=== PATIENT | male | born 1960 | race Two or more races ===

== ENCOUNTER 2019-05-12 09:17 | Emergency (ER) | payer SELFPAY ==
--- NOTE | 2019-05-12 09:23 | ER Document Report ---
ED Medical Screen (RME) - General Stated Complaint: POSSIBLE STROKE Time Seen by Provider: 05/12/19 09:18 - HPI Notes: 05/12/19 09:21 I was called to the [facility] desk to do a very brief focused exam for possible stroke. Coworker picked patient up and noticed he had trouble speaking and a facial droop. He was able to ambulate at that time. When he pulled to the emergency department patient can no longer walk and was not using the right side of his body. Unknown if any medical conditions or drug use. Patient's friend was acting as a flap maker at this time patient was not following directions well. Stroke protocol initiated. Orders placed. I have treated and performed a rapid initial assessment of this patient. A comprehensive ED assessment and evaluation of the patient, analysis of test results and completion of medical decision making process will be conducted by additional ED providers.
[2019-05-12] MEDS ORDERED: NICARDIPINE HCL RTU, ISO-OS 20 MG/200 ML RTUINJ IV ONE (10:04)
--- NOTE | 2019-05-12 10:13 | RADIOLOGY REPORT (SQ) ---
EXAM DESCRIPTION: CT HEAD WITHOUT COMPLETED DATE/TIME: 05/12/2019 9:32 am REASON FOR STUDY: possible stroke, rt side deficits COMPARISON: None. TECHNIQUE: Axial images acquired through the brain without intravenous contrast. Images reviewed wi th bone, brain and subdural windows. Additional sagittal and coronal reconstructions were generated. Images stored on PACS. All CT scanners at this facility use dose modulation, iterative reconstruction, and/or weight based d osing when appropriate to reduce radiation dose to as low as reasonably achievable (ALARA). [facility]: Dose Right [facility]: CareDose [facility]: Dose Right [facility]: Teradose 4D [facility]: [employer] RADIATION DOSE: CT Rad equipment meets quality standard of care and radiation dose reduction techniq ues were employed. CTDIvol: 53.2 mGy. DLP: 1017 mGy-cm. mGy. LIMITATIONS: None. FINDINGS: VENTRICLES: Normal size and contour. CEREBRUM: No masses. No hemorrhage. No midline shift. No evidence for acute infarction. Normal gra y/white matter differentiation. There is a subtle area of decreased attenuation in the posterior rig ht parietal lobe (axial series 2, images 24 and 25). CEREBELLUM: No masses. No hemorrhage. No alteration of density. No evidence for acute infarction. EXTRAAXIAL SPACES: No fluid collections. No masses. ORBITS AND GLOBE: No intra- or extraconal masses. Normal contour of globe without masses. CALVARIUM: No fracture. PARANASAL SINUSES: No fluid or mucosal thickening. SOFT TISSUES: No mass or hematoma. OTHER: No other significant finding. IMPRESSION: SUBTLE AREA OF DECREASED ATTENUATION IN THE POSTERIOR RIGHT PARIETAL LOBE, POSSIBLY AN A EVIE OF EARLY INFARCT. NO EVIDENCE OF HEMORRHAGE. EVIDENCE OF ACUTE STROKE: POSSIBLE. RIGHT MCA. COMMENT: Pertinent positive or negative findings of the imaging study reported as a CRITICAL EXAM t o ER PHYSICIAN at10:07 on 05/12/2019. Category of Critical Exam: STROKE ALERT. Quality ID # [id number]: Final reports with documentation of one or more dose reduction techniques (e.g., Au tomated exposure control, adjustment of the mA and/or kV according to patient size, use of iterative reconstruction technique) TECHNICAL DOCUMENTATION: JOB ID: [id number] [employer]- All Rights Reserved Reading location - IP/workstation name: [email or web address]
[2019-05-12 10:18] LABS: ABSOLUTE EOSINOPHILS # (AUTO) 0.1 10^3/uL (0.0-0.6); ABSOLUTE LYMPHOCYTES (AUTO) 1.7 10^3/uL (0.5-4.7); ABSOLUTE MONOCYTES (AUTO) 0.6 10^3/uL (0.1-1.4); BASOPHILS % (AUTO) 0.4 % (0-2); EOSINOPHILS % (AUTO) 1.5 % (0-6); HEMATOCRIT 32.3 % (37.9-51.0); HEMOGLOBIN 11.2 g/dL (13.5-17.0); LYMPHOCYTES % (AUTO) 22.3 % (13-45); MEAN CORPUSCULAR HEMOGLOBIN 35.4 pg (27.0-33.4); MEAN CORPUSCULAR HGB CONC 34.6 g/dL (32.0-36.0); MEAN CORPUSCULAR VOLUME 102 fl (80-97); MONOCYTES % (AUTO) 8.7 % (3-13); PLATELET COUNT 188 10^3/uL (150-450); RED BLOOD COUNT 3.16 10^6/uL (4.35-5.55); RED CELL DISTRIBUTION WIDTH 13.7 % (11.5-14.0); SEGMENTED NEUTROPHILS % (AUTO) 67.1 % (42-78); TOTAL CELLS COUNTED % (AUTO) 100 %; WHITE BLOOD COUNT 7.4 10^3/uL (4.0-10.5)
[2019-05-12 10:22] LABS: INTERNATIONAL RATION (INR) 1.06; PROTHROMBIN TIME 13.8 SEC (11.4-15.4)
[2019-05-12] MEDS ORDERED: NICARDIPINE HCL RTU, ISO-OS 20 MG/200 ML RTUINJ IV PRN (10:25)
[2019-05-12 10:32] LABS: ALBUMIN 3.1 g/dL (3.5-5.0); ALKALINE PHOSPHATASE 77 U/L (38-126); ANION GAP 5 (5-19); ASPARTATE AMINO TRANSFERASE 37 U/L (17-59); BILIRUBIN,DIRECT 0.1 mg/dL (0.0-0.4); BILIRUBIN,TOTAL 0.4 mg/dL (0.2-1.3); BLOOD UREA NITROGEN 17 mg/dL (7-20); CALCIUM 8.5 mg/dL (8.4-10.2); CARBON DIOXIDE 31 mmol/L (22-30); CHLORIDE 100 mmol/L (98-107); GLUCOSE 110 mg/dL (75-110); POTASSIUM 3.7 mmol/L (3.6-5.0)
[2019-05-12 10:33] LABS: ALCOHOL < 10 mg/dL (NONE DETECTED)
--- NOTE | 2019-05-12 10:37 | RADIOLOGY REPORT (SQ) ---
EXAM DESCRIPTION: CTA HEAD; CTA NECK COMPLETED DATE/TIME: 05/12/2019 9:54 am REASON FOR STUDY: STROKE ALERT,RT SIDE DEFICITS COMPARISON: None. TECHNIQUE: Post IV contrast scanning, thin section axial imaging through the neck and brain to evalu ate the arterial structures. Source and MIP images are saved and reviewed on PACS. Advanced 3D imaging as volume-rendering, MIPs, SSD performed? yes All CT scanners at this facility use dose modulation, iterative reconstruction, and/or weight based d osing when appropriate to reduce radiation dose to as low as reasonably achievable (ALARA). [facility]: Dose Right [facility]: CareDose [facility]: Dose Right [facility]: Teradose 4D [facility]: [employer] RENAL FUNCTION: GFR > 60. LIMITATIONS: None. FINDINGS: CTA neck Normal aortic arch with 3 vessel grade origin. Right common, internal and external carotids are patent. Left common, internal and external carotids are patent. Vertebral and basilar artery patent. Bones intact allowing for osteopenia. Lung apices clear allowing for mild scar. CTA [place] Anterior, middle and posterior cerebral arteries are patent. No aneurysm. No enhancing lesions identified. Bones intact. OTHER: No other significant finding. IMPRESSION: 1. Normal CTA of the carotids. 2. Normal CTA of the [place]. TECHNICAL DOCUMENTATION: JOB ID: [id number] Quality ID # [id number]: Final reports with documentation of one or more dose reduction techniques (e.g., Au tomated exposure control, adjustment of the mA and/or kV according to patient size, use of iterative reconstruction technique) 2010 [employer]- All Rights Reserved Reading location - IP/workstation name: [email or web address]
--- NOTE | 2019-05-12 10:37 | RADIOLOGY REPORT (SQ) ---
EXAM DESCRIPTION: CTA HEAD; CTA NECK COMPLETED DATE/TIME: 05/12/2019 9:54 am REASON FOR STUDY: STROKE ALERT,RT SIDE DEFICITS COMPARISON: None. TECHNIQUE: Post IV contrast scanning, thin section axial imaging through the neck and brain to evalu ate the arterial structures. Source and MIP images are saved and reviewed on PACS. Advanced 3D imaging as volume-rendering, MIPs, SSD performed? yes All CT scanners at this facility use dose modulation, iterative reconstruction, and/or weight based d osing when appropriate to reduce radiation dose to as low as reasonably achievable (ALARA). [facility]: Dose Right [facility]: CareDose [facility]: Dose Right [facility]: Teradose 4D [facility]: Adren[employer] RENAL FUNCTION: GFR > 60. LIMITATIONS: None. FINDINGS: CTA neck Normal aortic arch with 3 vessel grade origin. Right common, internal and external carotids are patent. Left common, internal and external carotids are patent. Vertebral and basilar artery patent. Bones intact allowing for osteopenia. Lung apices clear allowing for mild scar. CTA [place] Anterior, middle and posterior cerebral arteries are patent. No aneurysm. No enhancing lesions identified. Bones intact. OTHER: No other significant finding. IMPRESSION: 1. Normal CTA of the carotids. 2. Normal CTA of the [place]. TECHNICAL DOCUMENTATION: JOB ID: [id number] Quality ID # [id number]: Final reports with documentation of one or more dose reduction techniques (e.g., Au tomated exposure control, adjustment of the mA and/or kV according to patient size, use of iterative reconstruction technique) 2010 [employer]- All Rights Reserved Reading location - IP/workstation name: [email or web address]
[2019-05-12] MEDS ORDERED: ALTEPLASE INJ 100 MG VIAL IV ONE (10:38)
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
[2019-05-12 11:11] LABS: CREATINE KINASE MB 1.93 ng/mL (<4.55)
--- NOTE | 2019-05-12 11:13 | EKG REPORT ---
SEVERITY:- ABNORMAL ECG - SINUS RHYTHM ST ELEV, PROBABLE NORMAL EARLY REPOL PATTERN : Confirmed by: Alisa Murguia MD 12-May-2019 11:12:42
[2019-05-12 11:14] LABS: TROPONIN I 0.083 ng/mL
[2019-05-12 11:36] VITALS: BP 150/82
== END 2019-05-12 11:23 | disposition short-term general hospital (02) ==
LOC: EDBD → ER 09:17
DX: I63.9 Cerebral infarction, unspecified (principal); R29.723 NIHSS score 23; R29.810 Facial weakness; F17.200 Nicotine dependence, unspecified, uncomplicated
CPT/HCPCS: 93005; 99291; 99292; 37195; 36415; 82553; 80307; 82550; 84443; 85025; 85610; 85730; 80053; 84484; 70450; 70496; 70498; 93010; J2997; J3490